=== PATIENT | male | born 1955 | race Caucasian/White ===

== ENCOUNTER 2021-03-18 13:47 | Day surgery (SDC) | payer MEDICARE, BC ==
[~2021-03-18] VITALS: Ht 175.3 cm; Wt 80.1 kg
[2021-03-18] MEDS ORDERED: NORVASC 10MG10 MG PO (14:28)
[2021-03-18] MEDS ORDERED: LIPITOR 40MG TA40 MG PO (14:28)
[2021-03-18] MEDS ORDERED: ONE-A-DAY ESSE1 EACH PO (14:29)
[2021-03-18] MEDS ORDERED: Vitamin D PO (14:31)
[2021-03-18 14:35] VITALS: BP 153/99; PULSE 80; TEMP 98.2
[2021-03-18 16:05] VITALS: BP 123/80; PULSE 67; TEMP 97.1
--- NOTE | 2021-03-18 16:05 | NUR ---
PATIENT BROUG[place] [facility] [place]. PLACED ON MONITORS, VITALS STABLE. PATIENT AWAKE ALERT, DENIES PAIN OR NAUSEA. REQUESTS BARRETT AND TITO. REPORT RECIEVED FROM SWITCHBOARD MECHANIC AND THOMAS RINALDI CRNA. ALL QUESTIONS ANSWERED. PATIENT HAS MOLINA CATH IN PLACE. CALL [facility] WITHIN REACH, WILL MONITOR.
[2021-03-18 16:20] VITALS: BP 112/84; PULSE 82
--- NOTE | 2021-03-18 16:20 | NUR ---
TOLERATING FOOD AND DRINK WITHOUT DIFFICULTY. DENIES DISCOMFORT. WILL MONITOR. REPORT GIVEN TO PUSHPA GILLIAM, TO CONTINUE DISCHARGE CARE.
[2021-03-18 16:35] VITALS: BP 124/79; PULSE 69
--- NOTE | 2021-03-18 16:35 | NUR ---
Grace catheter to dependent drainage with yellow urine returning. STAT lock placed to secure catheter to leg. Provided dependent drainage bag for use at bedtime. Also given alcohol swabs to keep tips of bag clean. Dismissal instructions given and patient voices understanding of these.
--- NOTE | 2021-03-18 17:05 | NUR ---
IV discontinued and site is free of redness. States that he has had numerous catheters in place and removed them in the past. Provided 10cc syringes for this.
--- NOTE | 2021-03-18 17:17 | NUR ---
Patient dismissed to home driven by spouse and taken to the emergency room per wheelchair and assisted into vehicle with instructions in hand.
== END 2021-03-18 17:17 | disposition home or self-care (01) ==
LOC: SDCO 13:47
DX: N99.111 Postprocedural bulbous urethral stricture, male (principal); D07.5 Carcinoma in situ of prostate; N39.3 Stress incontinence (female) (male); I10 Essential (primary) hypertension; E78.2 Mixed hyperlipidemia; Z20.822 Contact with and (suspected) exposure to COVID-19; Z85.46 Personal history of malignant neoplasm of prostate; Z85.59 Personal history of malignant neoplasm of other urinary tract organ; Z79.899 Other long term (current) drug therapy; Z80.3 Family history of malignant neoplasm of breast; Z97.8 Presence of other specified devices
CPT/HCPCS: C1769; C1894; J7120